=== PATIENT | female | born 1970 | race Caucasian/White ===

== ENCOUNTER 2017-08-21 13:12 | Emergency (ER) | payer OTHER ==
[~2017-08-21] VITALS: Ht 172.7 cm; Wt 101.4 kg
[2017-08-21 13:30] VITALS: TEMP 36.9; Ht 172.7 cm; Wt 101.4 kg
--- NOTE | 2017-08-21 14:40 | DIAGNOSTIC IMAGING REPORT ---
C-SPINE ROUTINE 4 OR 5 VIEWS CLINICAL HISTORY: Right arm pain. Hand weakness. No known trauma. COMPARISON STUDY: No previous studies for comparison. FINDINGS: Visualization of the cervical spine is adequate. Alignment is anatomic. No fracture or suspicious lesion is present. There is mild disc space narrowing and ossified ptosis at C5-C6 and C6-C7. There is mild facet arthrosis. Mild multilevel bony neural foraminal narrowing is noted. Prevertebral soft tissues are unremarkable. IMPRESSION: 1. No cervical spine fracture. 2. Mild multilevel degenerative disc disease and facet arthrosis. Mild bony neural foraminal narrowing at several levels. Electronically signed by: Jim Joy M.D. 08/21/2017 2:38 PM Dictated Date/Time: 08/21/2017 2:37 PM
--- NOTE | 2017-08-21 14:41 | DIAGNOSTIC IMAGING REPORT ---
R SHOULDER MIN 2 VIEWS ROUTINE CLINICAL HISTORY: Right shoulder pain. COMPARISON: None FINDINGS: Alignment of the right glenohumeral joint is anatomic. There is widening of the right AC joint interval which is likely postsurgical. No fracture or suspicious lesion is present. A few small calcific densities along the superolateral aspect the right humeral head may reflect calcific tendinitis. IMPRESSION: 1. No acute fracture. 2. Widening of the right AC joint interval which could be correlated with surgical history. 3. A few calcific densities along the superolateral aspect the right humeral head which may reflect calcific tendinitis. Electronically signed by: Jim Joy M.D. 08/21/2017 2:40 PM Dictated Date/Time: 08/21/2017 2:39 PM
[2017-08-21] MEDS ORDERED: METH4PAK PO (15:57)
[2017-08-21] MEDS ORDERED: DICL50TA3 PO (15:58)
[2017-08-21] MEDS ORDERED: OXYC-57 PO (15:58)
--- NOTE | 2017-08-21 15:58 | EMERGENCY ROOM VISIT NOTE ---
ED Visit Note First contact with patient: 13:45 CHIEF COMPLAINT: Right shoulder pain 1 week HISTORY OF PRESENT ILLNESS: Patient is a [id number] 47-year-old female who presents emergency department for evaluation of right shoulder pain 1 week , getting worse in the last 1-2 days. She has a history of a shoulder arthroscopy and debridement in January 2016. She admits that she returned to work shortly after surgery against the advice of her surgeon. She was unable to attend physical therapy. She states that she was free from pain for about 4 months, then shoulder pain returned. She states that in the last week she has developed a sharp, occasionally stabbing pain in the anterior lateral aspect of the shoulder and a dull aching pain that radiates down her arm. She states that goes into her thumb and her index finger primarily. Her hand and wrist feels stiff and swollen and her elbow feels achy like it is bruised. She is tried tramadol, x-ray findings were reviewed with the patient. Ibuprofen and Tylenol without relief. She denies any numbness or tingling, but does note some weakness with powderman yesterday and states that she was dropping objects while washing dishes. She does a lot of heavy lifting at her current job which could have aggravated her underlying symptoms. REVIEW OF SYSTEMS: Review of systems as per HPI. All other systems reviewed were negative. At least 6 systems reviewed. PMH: Electronic medical records are reviewed and summarized as above/below. See Problem List. SOCIAL HISTORY: Patient lives at home with her spouse. Employed. PHYSICAL EXAM: Vital Signs: Reviewed nurse's notes. CONSTITUTIONAL: Patient is a well-appearing 27-year-old female who is awake and alert and in no acute distress. MUSCULOSKELETAL: Examination of the right shoulder show well-healed arthroscopic surgical incisions. There is no obvious deformity, no soft tissue swelling. There is no pain over the trapezius, or over the spine of the scapula. She does not have any tenderness of the clavicle, there is discomfort over the acromioclavicular joint, anteriorly over the proximal biceps tendon, and slightly laterally over the rotator cuff insertion. Passively she can be internally and externally rotated fully, cannot be flexed or abducted greater than 90 due to pain. She does appear to have some impingement. Rotator cuff strength testing is weak secondary to pain. The right upper extremity is neurovascularly intact. Upper extremity DTRs are equal and symmetrical bilaterally. Equal powderman strength. Radial and ulnar pulses are easily palpable. HEART: Regular rate and rhythm. LUNGS: Clear to auscultation. EMERGENCY DEPARTMENT COURSE: The patient was seen and examined as above. X- rays of the right shoulder and cervical spine were obtained. Findings are as noted below. Conservative care measures were discussed. The patient has had some ongoing right shoulder issues for some time, which she may have exacerbated recently. She does also have some symptoms which could be radicular given the pain radiating into her hand and the weakness with her powderman strength. She was encouraged to seek further orthopedic evaluation, as she may have ongoing shoulder as well as cervical spine pathology, and at this point is difficult to distinguish which his symptoms are related to which condition. She expressed understanding of this and was in agreement. She was placed on a Medrol Dosepak, then given a prescription for diclofenac that she can take after she finishes the steroid taper. She is given a small prescription for Percocet to use for severe pain. Differential diagnoses also entertained included biceps tendinitis, subacromial bursitis, rotator cuff tendinitis, impingement, cervical radiculopathy, among others. Medication reconciliation: I attest that I have personally reviewed the patient' s current medication list. Blood pressure screening : Patient was found to have normal blood pressure on screening and does not require follow-up. Patient was reviewed in the [facility] Prescription Drug Monitoring Program, and there were no red flags noted. C-SPINE ROUTINE 4 OR 5 VIEWS CLINICAL HISTORY: Right arm pain. Hand weakness. No known trauma. COMPARISON STUDY: No previous studies for comparison. FINDINGS: Visualization of the cervical spine is adequate. Alignment is anatomic. No fracture or suspicious lesion is present. There is mild disc space narrowing and ossified ptosis at C5-C6 and C6-C7. There is mild facet arthrosis. Mild multilevel bony neural foraminal narrowing is noted. Prevertebral soft tissues are unremarkable. IMPRESSION: 1. No cervical spine fracture. 2. Mild multilevel degenerative disc disease and facet arthrosis. Mild bony neural foraminal narrowing at several levels. R SHOULDER MIN 2 VIEWS ROUTINE CLINICAL HISTORY: Right shoulder pain. COMPARISON: None FINDINGS: Alignment of the right glenohumeral joint is anatomic. There is widening of the right AC joint interval which is likely postsurgical. No fracture or suspicious lesion is present. A few small calcific densities along the superolateral aspect the right humeral head may reflect calcific tendinitis. IMPRESSION: 1. No acute fracture. 2. Widening of the right AC joint interval which could be correlated with surgical history. 3. A few calcific densities along the superolateral aspect the right humeral head which may reflect calcific tendinitis. Problem List Surgical Problems: (1) H/O shoulder surgery Status: Resolved Current/Historical Medications Scheduled Diclofenac (Voltaren), 50 MG PO BIDM Methylprednisolone (Medrol Dosepak), 0 PO DAILY Scheduled PRN Oxycodone/Acetaminophen 5MG/325MG (Percocet 5MG/325MG), 1-2 TABS PO Q4 PRN for Pain Allergies Coded Allergies: Tetracycline (Verified Adverse Reaction, Mild, NAUSEA, 08/21/17) Vital Signs Date Time Temp Pulse Resp B/P (MAP) Pulse Ox O2 Delivery O2 Flow Rate FiO2 08/21/17 16:05 96 18 137/89 96 08/21/17 14:46 87 16 131/89 98 Room Air 08/21/17 13:30 36.9 81 20 133/87 99 Room Air Departure Information Impression Primary Impression: Right shoulder pain Additional Impression: Disc disease, degenerative, cervical Prescriptions Oxycodone/Acetaminophen 5MG/325MG (PERCOCET 5MG/325MG) Tab 1-2 TABS PO Q4 Y for Pain, #20 TAB For Initial Treatment Prov: Whit Rodríguez PA 08/21/17 Diclofenac (Voltaren) 50 Mg Tabec 50 MG PO BIDM, #60 TAB Prov: Whit Rodríguez PA 08/21/17 Methylprednisolone (MEDROL DOSEPAK) 4 Mg Ridge 0 PO DAILY, #1 PKT ONCE DAILY DIRECTED. Prov: Whit Rodríguez PA 08/21/17 Referrals No Doctor, Assigned (PCP) Wojciech Montes M.D. Patient Instructions My [facility] Additional Instructions Medrol Dosepak: Once daily until the prescription is finished. It is best to take this earlier in the day as some patients note occasional difficulty falling asleep when taken in the late evening. Oxycodone/Acetaminophen (Percocet) 5/325mg: Take 1-2 pills every four hours for breakthrough pain. Avoid alcohol, operating machinery or dangerous equipment, working on ladders or roofs, DRIVING, or situations where being under the influence may be dangerous. It is recommended to use an xggq-jfl-wilamtd stool softener such as Colace, 100mg twice daily while taking this medication to avoid constipation. Diclofenac 50mg : Take 1 tablet 2 times daily with food. Start once you have finished the Medrol Dosepak. Continue current medications. Return to the ER immediately for any numbness, tingling, severe pain, loss of control of your bowels or bladder, inability to walk, or as needed. Follow up with your primary care physician or with [facility] for further care and evaluation of your symptoms. Problem Qualifiers
[2017-08-21 16:05] VITALS: BP 137/89; PULSE 96; O2SAT 96
== END 2017-08-21 16:05 | disposition home or self-care (01) ==
LOC: C.EDB 13:15 → C.EDD 16:05
DX: M25.511 Pain in right shoulder (principal); M50.322 Other cervical disc degeneration at C5-C6 level; M50.323 Other cervical disc degeneration at C6-C7 level; Z79.899 Other long term (current) drug therapy; Z88.1 Allergy status to other antibiotic agents

== ENCOUNTER 2019-05-20 05:48 | Observation (INO) ==
--- NOTE | 2019-05-03 12:47 | PAT Medication Instructions ---
Medication Instructions Date of Service May 03, 2019 Home Medications ibuprofen 600 mg PO Q6H PRN ASK your surgeon for instructions ibuprofen 600 mg PO Q6H PRN Other Notes If you have any questions please call us at [phone] or [phone] or [phone] or [phone]
--- NOTE | 2019-05-05 15:09 | PAT Medication Instructions ---
Medication Instructions Date of Service May 05, 2019 Home Medications ibuprofen 600 mg PO Q6H PRN ASK your prescriber and surgeon ibuprofen 600 mg PO Q6H PRN Other Notes If you have any questions please call us at [phone] or [phone] or [phone] or [phone]
--- NOTE | 2019-05-06 08:20 | Anesthesiology Consultation ---
Date of Service May 06, 2019 Assessment & Plan (1) Encounter for pre-operative examination: CHECK TEST AM DOS. Chart Review Chart Review: Acceptable Risk for Surgery (pending pre-op testing) and Patient seen in Pre Admission Testing Teaching & Discussion Instructed NPO after midnight before surgery, except medications with 15 cc of water. Medication instructions provided according to the PAT guidelines. History Surgery Operation Date: 05/20/19 07:45 Proposed Procedures p C5-C7 Anterior Cervical Discectomy Fusion, C6 Corpectomy, Spinal Cord Monitoring - Romario Wright DO Height/Weight Height: 5 ft 5 in Weight: 112.9 kg Allergies Allergy/AdvReac Type Severity Reaction Status Date / Time latex Allergy Mild Rash Verified 05/02/19 11:19 tetracycline AdvReac Mild NAUSEA Verified 05/02/19 11:19 Medications Home Medications Medication Instructions Recorded Confirmed Last Taken ibuprofen 600 mg PO Q6H PRN 05/02/19 05/02/19 Unknown Past Medical History Medical History (Updated 05/06/19 @ 08:26 by [place]) Herniated disc, cervical Migraine Morbid obesity Exercise / Class Metabolic Activity II 4-5 Yardwork/Stairs/Walk up hill (Denies CP or SOB with 1 FOS) Past Surgical History Surgical History (Updated 05/06/19 @ 08:21 by [place]) H/O arthroscopy of shoulder History of carpal tunnel surgery of right wrist S/P endometrial ablation Past Anesthesia History No Hx of Anesthesia Complications and No Family Hx of Anesthesia Complications History of PONV No Hx of PONV and No Hx of Motion Sickness STOP BANG Total 2 Social History Smoking Status: Never smoker Do You Dip or Chew Tobacco: No Hx Alcohol Use: Yes alcohol intake frequency: holidays/special occasions only Hx Substance Use: No substance use type: does not use Review of Systems Pt denies any recent chest pain, shortness of breath, palpitations, cough, fever or URI. Physical Exam Vital Signs BP: 135/82 P: 83bpm SPO2: 98% RA T: 98.3 F R: 10 ENMT Mouth: + small oral opening; no dental restorations, no chipped teeth and no loose teeth Thyromental Distance: < 3.5 Finger Breadths (3) Mallampati Class: III Neck + thick neck and + limited neck extension (mildly) Respiratory normal respiratory effort Auscultation: lungs clear to auscultation bilaterally Cardiovascular Rate/Rhythm: regular rate and regular rhythm Heart Sounds: no murmur
--- NOTE | 2019-05-06 09:09 | XRay Report ---
XR chest Pre-admission PA/Lat CLINICAL HISTORY: 48 years-old Female presenting with preoperative assessment. TECHNIQUE: PA and lateral views of the chest were obtained. COMPARISON: None. FINDINGS: Cardiomediastinal silhouette normal. Lungs and pleural spaces clear. Osseous structures normal. Upper abdomen normal. IMPRESSION: 1. No acute cardiopulmonary disease. ACT 112: Negative or not required by law. Electronically signed by: Wojciech Fine M.D. 05/06/2019 9:08 AM
[2019-05-06 10:53] LABS: Appearance Urine Clear (Clear); Bilirubin Urine Negative (Negative); Blood Urine Negative (Negative); Color Urine Yellow; Glucose Urine UA Negative (Negative); Ketones Urine Negative (Negative); Leukocyte Esterase Urine Negative (Negative); Nitrite Urine Negative (Negative); Protein Urine Negative (Negative); Urobilinogen Urine Negative (Negative)
[2019-05-06 10:54] LABS: Basophils # (auto) 0.05 K/uL (0-0.2); Basophils % (auto) 0.5 %; Eosinophils # (auto) 0.26 K/uL (0-0.5); Eosinophils % (auto) 2.7 %; Hematocrit (blood only) 42.8 % (37-47); Hemoglobin 14.3 g/dL (12.0-16.0); Immature Granulocytes # (auto) 0.03 K/uL (0.00-0.02); Immature Granulocytes % (auto) 0.3 %; Lymphocytes # (auto) 3.31 K/uL (1.2-3.4); Lymphocytes % (auto) 34.9 %; Mean Corpuscular Hemoglobin 29.5 pg (25-34); Mean Corpuscular Hgb Conc 33.4 g/dL (32-36); Mean Corpuscular Volume 88.2 fL (80-100); Mean Platelet Volume 10.3 fL (7.4-10.4); Monocytes % (auto) 7.4 %; Neutrophils # (auto) 5.14 K/uL (1.4-6.5); Neutrophils % (auto) 54.2 %; Platelet Count 397 K/uL (130-400); RDW Coefficient of Variation 13.9 % (11.5-14.5); RDW Standard Deviation 44.7 fL (36.4-46.3); Red Blood Count 4.85 M/uL (4.2-5.4); White Blood Count 9.49 K/uL (4.8-10.8)
[2019-05-06 11:02] LABS: BUN Creatinine Ratio 18.5 (10-20); Calcium 9.1 mg/dl (8.5-10.1); Creatinine Clr Calc Pharmacy 90.7 ml/min; Est GFR (African American) 83.1; Est GFR (Non-African American) 71.7; Potassium 4.3 mmol/L (3.5-5.1)
[2019-05-06 11:05] LABS: INR 0.9 (0.9-1.1); Partial Thromboplastin Time 28.1 Seconds (21.0-31.0); Prothrombin Time 9.6 Seconds (9.0-12.0)
[2019-05-20] MEDS ORDERED: ACETAMINOPHEN 500 MG TAB PO SCH (06:00)
[2019-05-20] MEDS ORDERED: CeleBREX 200 MG CAP PO SCH (06:00)
[2019-05-20] MEDS ORDERED: GABAPENTIN 900 MG DOSE PO SCH (06:00)
[2019-05-20] MEDS ORDERED: CEFAZOLIN 2000MG 2,000 MG/15 ML SYR IV SCH (06:00)
[2019-05-20] MEDS ORDERED: LR 15ML/HR IV SCH (06:00)
[2019-05-20] MEDS ORDERED: HYDROmorphone INJ 2 MG/ML SYR/VIAL ONE (06:32)
[2019-05-20] MEDS ORDERED: PROPOFOL IV EMULSION 10 MG/ML 20 ML VIAL IV ONE (06:32)
[2019-05-20] MEDS ORDERED: fentaNYL citrate 100 MCG/2 ML VIAL ONE (06:32)
[2019-05-20] MEDS ORDERED: LIDOCAINE HCL 2% 2 ML VIAL/AMP(20MG/ML) INFIL ONE (06:32)
[2019-05-20] MEDS ORDERED: DEXAMETHASONE SOD INJ 4 MG/ML VIAL ONE (06:32)
[2019-05-20] MEDS ORDERED: PROPOFOL IV EMULSION 10 MG/ML 100 ML VIAL IV ONE (06:32)
[2019-05-20] MEDS ORDERED: ONDANSETRON INJ 2 MG/ML 2 ML VIAL ONE (06:32)
[2019-05-20] MEDS ORDERED: MIDAZOLAM HCL 1 MG/ML 2ML VIAL ONE (06:32)
[2019-05-20] MEDS ORDERED: SUCCINYLCHOLINE CHLORIDE 20 MG/ML 10 ML VIAL ONE (06:32)
[2019-05-20] MEDS ORDERED: BACITRACIN INJ 50,000 UNIT VIAL ONE (07:05)
--- NOTE | 2019-05-20 07:35 | History & Physical Bridge Note ---
Date of Service May 20, 2019 History & Physical Bridge Note I have examined the patient, reviewed the History & Physical and in the interval since the performance of the History & Physical I have noted the following changes of clinical significance: no changes noted
--- NOTE | 2019-05-20 07:36 | History & Physical Report ---
Date of Service May 20, 2019 Assessment & Plan (1) Cervical stenosis of spinal canal: Anterior cervical discectomy and fusion C5-C7, C6 corpectomy Present on Admission?: Yes History of Present Illness Chief Complaint: Neck and arm pain Primary Care Provider: Monica Florence MD Patient is a 49-year-old female presents with chronic persistent neck and arm symptoms. After failing extensive course of nonoperative care is here for surgical intervention. Allergies Allergy/AdvReac Type Severity Reaction Status Date / Time latex Allergy Mild Rash Verified 05/20/19 06:21 tetracycline AdvReac Mild NAUSEA Verified 05/20/19 06:21 Home Medications Home Medications Medication Instructions Recorded Confirmed Type ibuprofen 600 mg PO Q6H PRN 05/02/19 05/20/19 History Past Med/Surg History Social History Preferred Language: Ukrainian Communication Ability: Effective Baffle Installer Required: No Beliefs That Will Affect Care: None Current Living Situation: Spouse Other Information That Helps Us Care for You: No Feels Safe at Home: Yes Safety Concerns: Feels Safe At This Time Smoking Status: Never smoker Do You Dip or Chew Tobacco: No ; Second Hand Exposure: No ; Tobacco Cessation Education Requested by Patient: No Hx Alcohol Use: Yes Hx Substance Use: No Physical Exam Physical Exam: Patient is alert and oriented neurologically intact. Results & Data Vital Signs (Past 12 Hours) Vital Signs Temp Pulse Resp BP Pulse Ox 05/20/19 06:21 36.7 C 96 H 20 115/75 98
[2019-05-20] MEDS ORDERED: NEOSTIGMINE METHYLSULFATE 1 MG/ML 10ML VIAL ONE (08:33)
[2019-05-20] MEDS ORDERED: GLYCOPYRROLATE 0.2 MG/ML VIAL ONE (08:33)
[2019-05-20] MEDS ORDERED: NALOXONE HCL 0.4 MG/1 ML VIAL/CARP IV PRN ×2 (08:44→11:17)
[2019-05-20] MEDS ORDERED: FLUMAZENIL 0.1 MG/1 ML 10 ML VIAL IV PRN (08:44)
[2019-05-20] MEDS ORDERED: ePHEDrine sulfate 50 MG/ML AMP IV PRN (08:44)
[2019-05-20] MEDS ORDERED: LABETALOL HCL IV 5 MG/ML 20ML IV PRN (08:44)
[2019-05-20] MEDS ORDERED: ONDANSETRON INJ 2 MG/ML 2 ML VIAL IV PRN ×2 (08:44→11:17)
[2019-05-20] MEDS ORDERED: HYDROmorphone INJ 1 MG/ML SYRINGE IV PRN ×2 (08:44→11:17)
[2019-05-20] MEDS ORDERED: ATROPINE SULFATE 0.1 MG/ML 10ML SYR IV PRN (08:44)
[2019-05-20] MEDS ORDERED: PROMETHAZINE HCL 12.5 MG in SODIUM CHLORIDE 0.9% 50 ML IV PRN ×2 (08:44→11:17)
[2019-05-20] MEDS ORDERED: FLOSEAL HEMOSTATIC MATRIX 10ML TOP ONE (09:26)
--- NOTE | 2019-05-20 09:32 | Operative Report ---
Post Operative Report Pre & Post Diagnosis Operation Date: 05/20/19 07:45 Pre-Op Diagnosis: Cervical spinal stenosis with myeloradiculopathy Morbid obesity Post-Op Diagnosis: Same I identified the patient and participated in the time-out.: Yes Procedure Operation Date: 05/20/19 07:45 Actual Procedures #1 anterior cervical corpectomy with bilateral foraminotomies C6. #2 anterior cervical arthrodesis C5-C7. #3 placement of peek cage 23 mm in height C5-C7. #4 placement of local harvested morselized autograft combined with DBM and interbody cage. #5 application of knowles plate and screws from C5-C7. Surgeon Romario Wright, DO Melter Supervisor Open Hearth Furnace Kahlil Lopez Estimated Blood Loss 25 Findings See Below The patient is 5 foot 5 inches tall weighing over 112 kg with a BMI in excess of 41. The patient's body habitus did add significant technical difficulty from patient positioning to exposure to the actual procedure adding at least 25% increase in surgical time. Specimens None Indications This is a 49-year-old female presents emergency diagnosis after failing extensive course of nonoperative care is here for surgical invention. Description of Procedure Patient was met with identified informed consent obtained. Patient was then taken to the operative suite underwent intubation placed in supine position Sylvester table the head Faust head of talent management. All bony prominences well-padded eyes inspected to ensure no external pressure placed upon the peer at this point the anterior cervical spine was prepped and draped in a sterile fashion. The assistance of fluoroscopy identified the see 6 vertebral body and a transverse incision was placed along the right anterior aspect of the cervical spinal sinus region. Sharp dissection with the assistance of bipolar cautery was performed down to and exposing the anterior cervical spine from C5-C7. Self-retaining retractors placed. Then performed a complete discectomy of C5-6 out to the uncovertebral joints bilaterally followed by C6-7. Then performed a complete corpectomy of C6 removing all posterior annular fibers longitudinal ligament bilateral foraminotomies performed. Endplates were then burred to subcortical bleeding bone and a 23 mm peek cage filled with locally harvested morselized a utograft and DBM tapped in position. The distraction apparatus was removed and a 5 complete and screws applied with the assistance of fluoroscopy. Incision was then copiously irrigated explored to ensure no damage to surrounding structures remaining bleeding. 10 round LAISHA drain inserted and the incision closed with 2 Vicryl in a fashion of 4 Monocryl for final skin closure. Steri- Strips dressings placed. Patient awakened taken to PACU stable condition. Please note Kahlil Lopez was present at the entire procedure The patient positioning complex portions of the surgery and final skin closure. Lastly spinal cord monitoring was utilized that the procedure no changes noted. I attest to the content of the Intraoperative Record and any orders documented therein. Any exceptions are noted below.
--- NOTE | 2019-05-20 10:07 | Fluoroscopy Report ---
FL cervical 2-3V CLINICAL HISTORY: 49 years-old Female presenting with C5-C7 ACDF/C6 CORPECTOMY. TECHNIQUE: 3 fluoroscopic image(s) recorded as part of an intraoperative procedure. COMPARISON: 08/21/2017. FINDINGS/IMPRESSION: There has been interval anterior cervical discectomy and fusion of C5-C7 with C6 corpectomy. Support devices with tubing and surgical material projecting over the anterior neck. Straightening of cervica l lordosis likely result of fusion and positioning. Please see surgical report for further details. Fluoroscopy dosage (mGy): 1.7. Fluoroscopy time: 11.1 seconds. Number or time of high level fluoroscopy (HLF), digital spot, or digital subtraction images: 0. ACT 112: Negative or not required by law. Electronically signed by: Wojciech Fine M.D. 05/20/2019 10:06 AM
--- NOTE | 2019-05-20 11:02 | Anesthesiology Progress Note ---
Date of Service May 20, 2019 Anesthesia Post Procedure Vital Signs Vital Signs: Temp Pulse Pulse Resp BP BP Pulse Ox 05/20/19 10:47 36.5 C 85 14 144/86 H 99 05/20/19 10:35 73 14 143/86 H 96 05/20/19 10:25 69 14 149/79 H 100 05/20/19 10:15 76 16 140/84 100 05/20/19 10:05 78 16 153/78 H 100 05/20/19 09:55 69 12 140/75 93 05/20/19 09:49 36.2 C L 80 18 147/84 H 98 05/20/19 06:21 36.7 C 96 H 20 115/75 98 Pain Intensity Bilateral Posterior Neck: Pain Intensity: 5 Transfer of Care Handoff Completed per policy Notes Mental Status: alert / awake / arousable Patient Amnestic to Procedure: Yes Nausea / Vomiting: adequately controlled Pain: adequately controlled Airway Patency, RR, SpO2: stable & adequate BP & HR: stable & adequate Hydration State: stable & adequate Anesthetic Complications: no major complications apparent
[2019-05-20] MEDS ORDERED: ALUMINUM/MAGNESIUM SUSP 30 ML UDC PO PRN (11:17)
[2019-05-20] MEDS ORDERED: MAGNESIUM HYDROXIDE SUSP 30 ML UDC PO PRN (11:17)
[2019-05-20] MEDS ORDERED: ONDANSETRON 4 MG OD TAB PO PRN (11:17)
[2019-05-20] MEDS ORDERED: SOD PHOSPHATE/SOD BIPHOSPHATE ENEMA 132 ML BTL PR PRN (11:17)
[2019-05-20] MEDS ORDERED: FAMOTIDINE 20 MG TAB PO PRN (11:17)
[2019-05-20] MEDS ORDERED: HYDROmorphone INJ 0.5 MG/0.5 ML SYR IV PRN (11:17)
[2019-05-20] MEDS ORDERED: DO NOT ADMINISTER PNEUMOCOCCAL VACCINE PRN (11:17)
[2019-05-20] MEDS ORDERED: ACETAMINOPHEN 500 MG TAB PO PRN (11:17)
[2019-05-20] MEDS ORDERED: ACETAMINOPHEN 1,000 MG/100 ML VIAL IV PRN (11:17)
[2019-05-20] MEDS ORDERED: DEXAMETHASONE SOD PHOSPHATE 8 MG in SYRINGE 0 ML IV PRN (11:17)
[2019-05-20] MEDS ORDERED: DO NOT ADMINISTER FLU VACCINE PRN (11:17)
[2019-05-20] MEDS ORDERED: LORazepam 0.5 MG TAB PO PRN (11:17)
[2019-05-20] MEDS ORDERED: RACEPINEPHRINE 2.25% NEBU SOLN 0.5 ML VIAL INH PRN (11:17)
[2019-05-20] MEDS ORDERED: LORazepam 0.5 MG/1 ML VIAL IV PRN (11:17)
[2019-05-20] MEDS ORDERED: METOCLOPRAMIDE HCL INJ 5 MG/ML 2 ML VIAL IV PRN (11:17)
[2019-05-20] MEDS: LACTATED RINGER'S 1,000 ML IV SCH ×2 (11:35→19:49)
[2019-05-20] MEDS: OXYCODONE HCL IR 5 MG TAB (IMMEDIATE RELEASE) PO PRN ×2 (13:25→22:15)
[2019-05-20] MEDS: CEFAZOLIN 2000MG 2,000 MG/15 ML SYR IV SCH (16:06)
[2019-05-20] MEDS: TRAMADOL HCL 50 MG TABLET PO PRN (18:41)
[2019-05-20] MEDS ORDERED: DOCUSATE SODIUM/SENNA 50/8.6MG TAB PO SCH (21:00)
[2019-05-21] MEDS: CEFAZOLIN 2000MG 2,000 MG/15 ML SYR IV SCH (00:12)
[2019-05-21] MEDS ORDERED: POLYETHYLENE (MIRALAX) 17 GM PACK PO SCH (06:00)
[2019-05-21] MEDS: TRAMADOL HCL 50 MG TABLET PO PRN (06:03)
[2019-05-21 07:42] VITALS: O2SAT 98
[2019-05-21 08:12] VITALS: BP 119/66; TEMP 98.2
[2019-05-21] MEDS: OXYCODONE HCL IR 5 MG TAB (IMMEDIATE RELEASE) PO PRN (09:09)
--- NOTE | 2019-05-21 09:46 | Discharge Summary ---
Date of Service May 21, 2019 Admission HPI Per Admitting Provider Patient is a 49-year-old female presents with chronic persistent neck and arm symptoms. After failing extensive course of nonoperative care is here for surgical intervention. Principal Diagnosis Cervical spinal stenosis with radiculopathy Discharge Data Allergies Allergy/AdvReac Type Severity Reaction Status Date / Time latex Allergy Mild Rash Verified 05/20/19 06:21 tetracycline AdvReac Mild NAUSEA Verified 05/20/19 06:21 Procedures Performed Operation Date: 05/20/19 07:45 Actual Procedures p C5-C7 Anterior Cervical Discectomy Fusion, C6 Corpectomy, Spinal Cord Monitoring - Romario Wright DO Ordered Studies 05/20/19 07:45 FL cervical 2-3V Routine FL fluoroscopy <1hr Routine Hospital Course (1) Cervical stenosis of spinal canal: Patient on anterior cervical corpectomy and fusion tolerated this well was taken to orthopedic for postoperative. Postop day 1 she was swallowing well no hoarseness. Good strength testing. Pain well improved. LAISHA drain decreasing probably. Subsequent discharge home. Discharge orders instructions from the chart for further review. Total Time Total Time Spent Total Time Spent (In Minutes): 20 minutes Discharge Plan Discharge Items Patient Disposition: Home - Self-Care Reason For Visit: Spinal Stenosis, Cervical Region Discharge Diagnosis: Cervical spinal stenosis with radiculopathy Activity: As commented below Non-emergency contact: Primary Care Provider Call non-emergency contact if: you have any medication questions Follow-up/Referrals: Monica Vargas MD [Primary Care Provider] - Diet: Regular Addtl Attending Provider Instructions: ACTIVITY RECOMMENDATIONS: SELF CARE INSTRUCTIONS AFTER CERVICAL FUSIONS 1. No smoking. Smoking drastically decreases the chance of a solid fusion. 2. No bending, lifting more than 5 pounds, or twisting (roll like a log when turning in bed). 3. You may shower 3 days after surgery. Thoroughly dry wound. Do not soak in the tub. 4. Cervical collar: Must be worn at all times including sleeping. You may remove the brace only to bath, eat and if you are sitting in a recliner. 5. Please walk as much as you can for exercise. Gradually increase the distance that you walk as your endurance increases. SPECIAL CARE INSTRUCTIONS: VERY IMPORTANT TO READ AND REVIEW A. Do not take any anti-inflammatory medications (i.e. Indocin, Advil, Aspirin, Naprosyn, Aleve, Motrin, etc.) as these may inhibit the chance of a solid fusion. Tylenol is okay to take. B. Your surgical incision has been closed with a cosmetic suture under the skin that will dissolve in about 6 weeks. In 14 days, you can use a pair of clean scissors and cut the suture that is left outside of the skin at the ends of your incision. C. Complications are uncommon, but please contact us if you have any signs or symptoms of: 1. wound infection (fever higher than 102.5 degrees F, redness, separation of wound, drainage, or increasing pain from the incision) 2. blood clots in legs (pain, swelling, redness and warmth in legs) 3. urinary tract infection (fever higher than 102.5 degrees, burning upon urination or increased frequency of urination) 4. nerve problems (inability to walk on your toes or heels, numbness, loss of bowel or bladder control) 5. any other symptoms that concern you. D. Please call the office at if you have any concerns or questions about your operation or recovery. MANAGING PAIN AFTER SPINAL SURGERY 1. Narcotic medication is intended for short-term use and will be provided for surgical pain. Surgical pain usually lasts for a period of 4-6 weeks. Narcotic medication includes Percocet, Vicodin, Darvocet, Tylenol #3 or Lortab. 2. Longer-term pain is more appropriately treated with non-narcotic medication such as Tylenol ES. 3. Muscle spasm is not appropriately treated with narcotics. Muscle relaxers such as Soma, Flexeril or Skelaxin can be used along with Tylenol ES. 4. Remember that we all live with some "aches and pains". This is not unusual or uncommon after an injury or as we get older. 5. We will provide appropriate medication within the normal guidelines of their prescribed use. We will also be very cautious and aware of potential abuse and extended duration of patients' medication needs. 6. Please allow 2-3 days to process refills. Prescriptions will not be mailed but must be picked up at the office. FOLLOW UP VISIT: Keep your scheduled follow-up appointment. Any questions, please call the office at . Pending Studies at Discharge: No Stand-Alone Forms: My [facility], Smoking Cessation Medications and DC Order Prescriptions: New tramadol 50 mg tablet 50 mg PO Q6H PRN (Reason: pain, moderate) Qty: 10 RF: 0 oxycodone 5 mg tablet 5 mg PO Q6H PRN (Reason: pain, severe) Qty: 10 RF: 0 Continued ibuprofen 600 mg Tablet 600 mg PO Q6H PRN (Reason: Pain) RF: 0 Discharge Orders: Discharge Order (Routine); Ordered 05/21/19 Ordered By: Romario Wright Admission Data Admit Date/Time: 05/20/19 10:28 Attending Provider: Romario Wright Admit Provider: Romario Wright Primary Care Provider: Monica Vargas
[2019-05-21 10:42] VITALS: PULSE 82
[2019-05-22] MEDS ORDERED: bisacodyL 10 MG SUPP PR PRN (09:32)
== END 2019-05-21 11:05 | disposition home or self-care (01) ==
LOC: ASU 05:48 → 3E 05:48
DX: E66.01 Morbid (severe) obesity due to excess calories; Z88.1 Allergy status to other antibiotic agents; Z68.41 Body mass index [BMI] 40.0-44.9, adult; Z91.040 Latex allergy status; M48.02 Spinal stenosis, cervical region; M54.12 Radiculopathy, cervical region